=== PATIENT | female | born 1965 | race Caucasian/White ===

== ENCOUNTER 2017-01-17 03:26 | Emergency (ER) | payer MEDICAID ==
[~2017-01-17] VITALS: Ht 160 cm; Wt 70.5 kg
[~2017-01-17 03:26] MED LIST: ATOR20TA17 PO; LEVO112T2 PO; LEVO125T75 PO; METR45GE3 TOP; NITR-58 PO; SULF1TAB31 PO
[2017-01-17 03:39] VITALS: Ht 160 cm; Wt 70.5 kg
[2017-01-17] MEDS ORDERED: ACETAMINOPHEN 500 MG TAB PO STA (04:14)
--- NOTE | 2017-01-17 04:25 | RADRPT ---
PROCEDURE: CHEST - 1 VIEW CLINICAL INDICATION: 51-year-old female with cough and fever. TECHNIQUE: A single frontal AP semi-erect view of the chest was performed portably. The images we re reviewed on a PACS workstation. COMPARISON: None. FINDINGS: The cardiomediastinal silhouette has a normal appearance. There is no evidence for an infiltrate. There is no evidence for congestive heart failure. There is no evidence for pneumothorax. The osseou s structures are intact. IMPRESSION: No evidence for active cardiopulmonary disease. .Arslan Bolden MD, MD Date Time Electronically viewed and signed by .Arslan Bolden MD, on 01/17/2017 04:25 .M/
[2017-01-17] MEDS ORDERED: IBUPROFEN 200 MG TAB PO ONE (04:30)
--- NOTE | 2017-01-17 04:37 | ERD ---
ER Documentation Chief Complaint Date/Time DATE: 01/17/17 TIME: 04:34 Chief Complaint fever/body aches since 10 pm HPI 51-year-old female presents here in emergency department for complaints of fever cough bodyaches started last night. Patient has been having dry cough, does not cough up any phlegm or blood. Patient does not have any shortness breath or wheezing. Patient is been having runny nose nasal congestion clear nasal discharge. Patient complaining of bodyaches, throbbing pain, 4/and scale, accompanying the other symptoms. Patient did not take any medications up with symptoms. She denies any chest pain or palpitations. Patient denies any dyspnea on exertion or dyspnea when down. ROS All systems reviewed and are negative except as per history of present illness. Medications Home Meds Active Scripts Oseltamivir Phosphate* (Tamiflu*) 75 Mg Capsule, 75 MG PO BID for 5 Days, CAP Prov:CAPRI FAM NP 01/17/17 Acetaminophen* (Tylophen*) 500 Mg Capsule, 1 CAP PO Q6H Y for PAIN AND OR ELEVATED TEMP, #20 CAP Prov:CAPRI FAM NP 01/17/17 Ibuprofen* (Motrin*) 400 Mg Tab, 400 MG PO Q6H Y for PAIN AND OR ELEVATED TEMP, #30 TAB Prov:CAPRI FAM NP 01/17/17 Cetirizine Hcl* (Zyrtec*) 10 Mg Capsule, 10 MG PO DAILY, #30 TAB.CHEW Prov:CAPRI FAM NP 01/17/17 Fbsfvifjtis-M-Zsrsfaorgh Hb* (Guaifenesin* DM Syrup) 120 Ml Syrup, 10 ML PO Q4H Y for COUGH, #120 ML Prov:CAPRI FAM NP 01/17/17 Levothyroxine Sodium* (Levothyroxine Sodium*) 125 Mcg Tablet, 125 MCG PO BEFORE BREAKFAST, #10 TAB Prov:CAPRI FAM NP 06/14/16 Levothyroxine Sodium* (Levothyroxine Sodium*) 125 Mcg Tablet, 125 MCG PO BEFORE BREAKFAST, #30 TAB Prov:MALCOLM WOOD PA-C 11/27/15 Metronidazole (Metronidazole Gel) 0.75% - 45 Gm Gel..gram., 1 APPLIC TOP BID for 5 Days, TUB Prov:JUAN GARCIA I. [employer]ENT 07/31/15 Sulfamethoxazole-Trimethoprim (Bactrim DS Tablet) 800-160 Mg Tab, 1 TAB PO BID for 3 Days, TAB Prov:JUAN GARCIA I. [employer] 07/31/15 Nitrofurantoin Monohyd Macrocr* (Macrobid*) 100 Mg Capsr, 100 MG PO BID for 7 Days, CAP Prov:JUAN GARCIA I. [employer]ENT 07/31/15 Reported Medications Atorvastatin (Lipitor) 20 Mg Tablet, PO HS 06/01/12 Levothyroxine Sodium* (Synthroid*) 112 Mcg Tablet, PO DAILY 06/01/12 Allergies Allergies: Coded Allergies: No Known Allergy (Unverified , 01/17/17) PMhx/Soc History of Surgery: No Anesthesia Reaction: No Hx Neurological Disorder: No Hx Respiratory Disorders: No Hx Cardiac Disorders: No Hx Psychiatric Problems: No Hx Miscellaneous Medical Probl: Yes (HYPOTHRYOID dyslipidemia) Hx Alcohol Use: No Hx Substance Use: No Hx Tobacco Use: No Smoking Status: Never smoker FmHx Family History: No coronary disease, No diabetes, No other Physical Exam Vitals Vital Signs Date Time Temp Pulse Resp B/P Pulse Ox O2 Delivery O2 Flow Rate FiO2 01/17/17 05:35 97.8 86 18 148/79 98 Room Air 01/17/17 03:39 100.4 91 20 178/89 99 Physical Exam GENERAL: The patient is well developed and appropriate for usual state of health, in no apparent distress. CHEST: Clear to auscultation bilaterally. There are no rales, wheezes or rhonchi. HEART: Regular rate and rhythm. No murmurs, clicks, rubs or gallops. No S3 or S4. ABDOMEN: Soft, nontender and nondistended. Good bowel sounds. No rebound or guarding. No gross peritonitis. No gross organomegaly or masses. No Carpenter sign or McBurney point tenderness. BACK: No midline or flank tenderness. EXTREMITIES: Equal pulses bilaterally. There is no peripheral clubbing, cyanosis or edema. No focal swelling or erythema. Full range of motion. Grossly neurovascularly intact. NEURO: Alert and oriented. Cranial nerves 2-12 intact. Motor strength in all 4 extremities with 5/5 strength. Sensation grossly intact. Normal speech and gait. SKIN: There is no apparent rash or petechia. The skin is warm and dry. HEMATOLOGIC AND LYMPHATIC: There is no evidence of excessive bruising or lymphedema. No gross cervical, axillary, or inguinal lymphadenopathy. Results 24 hrs Current Medications Medications (Trade) Dose Ordered Sig/Dinesh Route PRN Reason Start Time Stop Time Status Last Admin Dose Admin Acetaminophen (Tylenol Tab) 500 mg ONCE STAT PO 01/17/17 04:14 01/17/17 04:15 DC 01/17/17 04:31 Ibuprofen (Motrin) 400 mg ONCE ONCE PO 01/17/17 04:30 01/17/17 04:31 DC 01/17/17 04:32 Patient was given medicines for fever control here in the emergency department. After treatment, patient temperature improved and lower. Patient appears well and is hemodynamically stable. PROCEDURE: CHEST - 1 VIEW CLINICAL INDICATION: 51-year-old female with cough and fever. TECHNIQUE: A single frontal AP semi-erect view of the chest was performed portably. The images were reviewed on a PACS workstation. COMPARISON: None. FINDINGS: The cardiomediastinal silhouette has a normal appearance. There is no evidence for an infiltrate. There is no evidence for congestive heart failure. There is no evidence for pneumothorax. The osseous structures are intact. IMPRESSION: No evidence for active cardiopulmonary disease. .Arslan Bolden MD, MD Date Time Electronically viewed and signed by .Arslan Bolden MD, on 01/17/2017 04:25 .M/ CC: CAPRI FAM [employer]ENDENT Procedures/MDM Medical Decision Making: Patient symptoms are most likely consistent with upper respiratory tract infection,high suspicion for influenza which viral in origin. There is low suspicion for Pneumonia at this time since patients lungs sounds are clear, patient O2 saturation is normal and patient doesnt show any respiratory distress. Patients chest xray doesnt show infiltrates or any other cardiopulmonary emergencies at this time. There is low suspicion for other cardiopulmonary emergencies at this time such as CHF, Pulmonary Embolism, Pneumothorax, Aortic Aneurysm or any other cardiopulmonary emergencies at this time. There is low suspicion for sepsis. Patient appears well and is hemodynamically stable. Fever is controlled with medicines. Disposition: Home. Condition: Stable Prescriptions: Tamiflu, Zyrtec ibuprofen Tylenol guaifenesin DM. Instructions: Patient is advised to take medications as prescribed. Patient is advised to rest. Patient advised to increase fluid intake, do humidifier at home and if possible, do salt water gargles. Patient is advised that if symptoms are worse, shortness of breath, uncontrolled fever, stridor, vomiting, worst signs and symptoms to return to emergency department immediately. Otherwise, patient is advised to follow up with primary doctor in 5-7 days. Departure Diagnosis: Primary Impression: URI (upper respiratory infection) URI type: unspecified viral URI Qualified Code: J06.9 - Viral upper respiratory tract infection Condition: Stable Patient Instructions: Uri, Viral, No Abx (Adult) Additional Instructions: Patient is advised to take medications as prescribed. Patient is advised to rest. Patient advised to increase fluid intake, do humidifier at home and if possible, do salt water gargles. Patient is advised that if symptoms are worse, shortness of breath, uncontrolled fever, stridor, vomiting, worst signs and symptoms to return to emergency department immediately. Otherwise, patient is advised to follow up with primary doctor in 5-7 days. CAPRI FAM NP Jan 17, 2017 04:37
[2017-01-17] MEDS ORDERED: GUAI120S26 PO (04:40)
[2017-01-17] MEDS ORDERED: CETI10CA PO (04:40)
[2017-01-17] MEDS ORDERED: OSLT75C PO (04:40)
[2017-01-17] MEDS ORDERED: IBUP400T22 PO (04:40)
[2017-01-17] MEDS ORDERED: ACET500C5 PO (04:40)
[2017-01-17 05:35] VITALS: BP 148/79; PULSE 86; RESP 18; TEMP 97.8
== END 2017-01-17 05:55 | disposition home or self-care (01) ==
LOC: FTE 03:26
DX: J06.9 Acute upper respiratory infection, unspecified (principal); E03.9 Hypothyroidism, unspecified
CPT/HCPCS: 71010; Z7502; Z7610

== ENCOUNTER 2018-02-23 13:53 | Emergency (ER) | END 2018-02-23 15:02 | disposition home or self-care (01) ==

== ENCOUNTER 2018-03-28 12:22 | Emergency (ER) | END 2018-03-28 15:26 | disposition home or self-care (01) ==